=== PATIENT | female | born 1950 | race Caucasian/White ===

== ENCOUNTER 2020-05-13 08:52 | Inpatient (IN) ==
[~2020-05-13 08:52] MED LIST: Famotidine 20 MG/2 ML VIAL IVP ONE
[2020-05-13] MEDS ORDERED: CeFAZolin Syr 2,000MG/20 ML 2,000 MG/20 ML SYRINGE IVPB ONE (09:20)
[2020-05-13] MEDS ORDERED: Ringers Solution, Lactated 1,000 ML IVC SCH (09:30)
[2020-05-13] MEDS ORDERED: Acetaminophen IV 1,000 MG/100 ML BAG IVPB ONE (10:57)
[2020-05-13] MEDS ORDERED: Pregabalin 50 MG CAPSULE PO ONE (10:57)
[2020-05-13] MEDS ORDERED: Hydrocortisone Sodium Succ 100 MG/2 ML VIAL IVP ONE (11:01)
[2020-05-13] MEDS ORDERED: Ondansetron 4 MG/2 ML VIAL IVP PRN ×2 (11:32→14:40)
[2020-05-13] MEDS ORDERED: Naloxone 0.4 MG/ML INJ IVP PRN ×2 (11:32→14:40)
[2020-05-13] MEDS ORDERED: Albuterol 2.5 MG/3 ML NEBULIZER IH PRN (11:32)
[2020-05-13] MEDS ORDERED: *HR* FentaNYL (PF) 100 MCG/2 ML VIAL IVP PRN (11:32)
[2020-05-13] MEDS ORDERED: *HR* HYDROmorphone PF 0.5 MG/0.5 ML SYRINGE IVP PRN (11:32)
[2020-05-13] MEDS ORDERED: Ipratropium Neb 0.5 MG NEBULIZER IH PRN (11:32)
[2020-05-13] MEDS ORDERED: HEPARIN ONE (11:45)
[2020-05-13] MEDS ORDERED: Lidocaine 1% 20 ML MDV ONE (11:45)
[2020-05-13] MEDS ORDERED: [UNRECOGNIZED DRUG - OTHER] ONE (11:45)
[2020-05-13] MEDS ORDERED: Dexamethasone 4 MG/ML VIAL ONE ×2 (11:54)
[2020-05-13] MEDS ORDERED: *HR* Midazolam HCl 2 MG/2 ML VIAL ONE (11:54)
[2020-05-13] MEDS ORDERED: *HR* Succinylcholine 200 MG/10 ML VIAL IVP ONE (11:54)
[2020-05-13] MEDS ORDERED: *HR* FentaNYL (PF) 100 MCG/2 ML VIAL ONE (11:54)
[2020-05-13] MEDS ORDERED: Lidocaine -MPF 2% 2 ML VIAL ONE (11:54)
[2020-05-13] MEDS ORDERED: *HR* Rocuronium Bromide 50 MG/5 ML VIAL ONE (11:54)
[2020-05-13] MEDS ORDERED: *HR* Propofol 200 MG/20 ML VIAL IVP ONE (11:54)
[2020-05-13] MEDS ORDERED: Ondansetron 4 MG/2 ML VIAL ONE (11:54)
[2020-05-13] MEDS ORDERED: Lidocaine HCL 4 ML Topical Solution (Laryng-O-Jet Kit Sterile Pak) TP ONE (11:54)
[2020-05-13] MEDS ORDERED: *HR* Heparin 5,000 UNIT/ML VIAL ONE (12:13)
[2020-05-13] MEDS ORDERED: *HR* PHENYLEPHRINE 1,000 MCG/10 ML SYRINGE IVP ONE (12:51)
[2020-05-13] MEDS ORDERED: Sugammadex Sodium 200 MG/2 ML VIAL IV ONE (13:18)
[2020-05-13] MEDS ORDERED: EPHEDrine 50 MG/ML VIAL ONE (13:18)
[2020-05-13] MEDS ORDERED: *HR* HYDROcodone/Acet 5/325 mg TABLET PO PRN (14:40)
[2020-05-13] MEDS: Gabapentin 300 MG CAPSULE PO SCH ×2 (15:24→21:11)
[2020-05-13] MEDS: Famotidine 20 MG TABLET PO SCH (15:24)
[2020-05-13] MEDS: 0.9 % Sodium Chloride 1,000 ML IVC SCH (15:25)
[2020-05-13] MEDS: *HR* Heparin 5,000 UNIT/ML VIAL SQ SCH ×2 (15:25→21:12)
[2020-05-13] MEDS: Ipratropium/Albuterol Neb 3 ML IH SCH ×3 (16:24→22:46)
[2020-05-13] MEDS: Sennosides/Docusate Sodium TABLET PO SCH (21:11)
[2020-05-13] MEDS: Ketorolac 15 MG/ML VIAL IVP SCH (21:11)
[2020-05-14 02:44] LABS: Hematocrit 34.4 % (35.3-44.9); Mean Corpuscular HGB Conc 31.4 g/dL (31.6-35.5); Mean Corpuscular Hemoglobin 29.7 pg (28.0-33.3); Mean Corpuscular Volume 94.5 fL (83.0-100.0); Mean Platelet Volume 10.3 fL (9.4-12.4); Platelet Count 241 K/mcL (140-400); Red Blood Count 3.64 M/mcL (3.82-4.97); Red Cell Distribution Width 13.5 % (11.5-14.5)
[2020-05-14 02:45] LABS: White Blood Count 14.6 K/mcL (4.3-11.1)
[2020-05-14 02:46] LABS: Hemoglobin 10.8 g/dL (11.5-15.4)
[2020-05-14] MEDS: Ketorolac 15 MG/ML VIAL IVP SCH ×2 (02:58→05:09)
[2020-05-14 03:06] LABS: % Iron Saturation 8 % (15-50); BUN/Creatinine Ratio 25 (6-26); Blood Urea Nitrogen 24 mg/dL (8-23); Calcium 8.1 mg/dL (8.6-10.3); Carbon Dioxide 25 mEq/L (23-29); Chloride 105 mEq/L (98-107); Glucose 158 mg/dL (70-105); Iron 19 mcg/dL (50-170); Osmolality,Calculated 291 (280-300); Potassium 4.2 mEq/L (3.5-5.1); Sodium 137 mEq/L (136-145); Transferrin 160 mg/dL (203-362); eGFR For African Americans > 60 (> 60); eGFR For Non-African Americans 59 (> 60)
[2020-05-14] MEDS: Ipratropium/Albuterol Neb 3 ML IH SCH ×3 (03:47→11:21)
[2020-05-14] MEDS: 0.9 % Sodium Chloride 1,000 ML IVC SCH (05:08)
[2020-05-14] MEDS: *HR* Heparin 5,000 UNIT/ML VIAL SQ SCH (05:09)
[2020-05-14] MEDS: Famotidine 20 MG TABLET PO SCH (07:39)
[2020-05-14] MEDS: Sennosides/Docusate Sodium TABLET PO SCH (07:39)
[2020-05-14] MEDS: Gabapentin 300 MG CAPSULE PO SCH (07:39)
[2020-05-14 10:53] VITALS: BP 116/89
== END 2020-05-14 11:31 | disposition home health service (06) | DRG 167 ==
LOC: SAMDAY 08:52 → 2NNU 14:38
PROVIDERS: ADMIT Thoracic Surgery (Cardiothoracic Vascular Surgery); ATTEND Thoracic Surgery (Cardiothoracic Vascular Surgery)